=== PATIENT | male | born 1995 | race Caucasian/White ===

== ENCOUNTER 2018-02-26 09:39 | Emergency (ER) | payer MEDICAID, SELFPAY ==
[2018-02-26 09:39] VITALS: BP 132/80; PULSE 85; RESP 18; TEMP 36.6; O2SAT 98; BMI 32.1
[2018-02-26] MEDS: Ondansetron 4 MG/2 ML Vial IV (10:05)
[2018-02-26] MEDS: 0.9% Normal Saline 1,000 ML 150 ML IV (10:05)
[2018-02-26] MEDS: Morphine 4 MG/ML Syringe IV (10:05)
--- NOTE | 2018-02-26 10:15 | RAD_ITS ---
STUDY: X-RAY CHEST REASON FOR EXAM: Male, 22 years old. Right upper quadrant pain TECHNIQUE: PA and lateral views of the chest. COMPARISON: None. FINDINGS: The lungs are clear and expanded. There is no demonstrated pleural abnormality. Normal size heart. Normal mediastinum and jesika. Normal visualized pulmonary arteries. Normal visualized aortic arch and descending thoracic aorta. Normal visualized thoracic spine. Normal visualized ribs, clavicles, and shoulders. There is no demonstrated abnormality of the visualized soft tissue structures of the upper abdomen. RAD/Chest PA and Lateral IMPRESSION: Normal x-ray examination of the chest. Electronically Signed: Heriberto Frankel DO at 10:39 EDT Tel , Service support ,
[2018-02-26 10:17] LABS: Absolute Lymphocyte Count 2.66 X10^3/ul (0.83-4.51); Absolute Neutrophil Count 4.5 X10^3/uL (2.0-7.7); Basophil# 0.02 X10^3/uL; Basophil% 0.2 % (0-1); Eosinophils% 5.9 % (0-5); Hematocrit 45.8 % (40-54); Hemoglobin 16.3 g/dl (13.0-16.5); Lymphocyte # 2.66 X10^3/ul (4.0); Lymphocyte % 31.2 % (19-41); Mean Corp Hgb Conc 35.6 g/gl (32-36); Mean Corpuscular Volume 87.2 fL (80-94); Mean Platelet Vol. 9.6 fl (6.2-12.0); Monocyte# 0.86 X10^3/uL; Monocyte% 10.1 % (0-10); Neutrophil # 4.47 X10^3/uL (2.7-7.7); Neutrophil % 52.4 % (47-70); POSITIVE COUNT NO; POSITIVE DIFFERENTIAL NO; POSITIVE MORPHOLOGY NO; Platelet Count 253 K/mm3 (150-450); RBC Distribution Width CV 12.9 % (11.6-14.6); RBC Distribution Width SD 40.9 fl (35.1-43.9); Red Blood Count 5.25 M/mm3 (4.6-6.2); White Blood Count 8.5 K/mm3 (4.4-11.0)
[2018-02-26 10:26] LABS: D-Dimer Quantitative (DVT/PE) < 0.27 FEU/ug/m (0.27-0.49)
[2018-02-26 10:31] LABS: ALB/GLOB Ratio 1.1 RATIO (0.9-2.4); AST(SGOT) 34 U/L (15-37); Alanine Aminotransfer ALT/SGPT 78 U/L (16-61); Albumin, Serum 4.2 g/dL (3.2-5.0); Alkaline Phosphatase 97 U/L (45-117); Anion Gap 7 (5-15); BUN 10 mg/dL (7-18); BUN/Creat Ratio 11.1 RATIO (10-20); Calcium,Total 8.8 mg/dL (8.5-10.1); Chloride 106 mmol/L (98-107); EST Glomerular Filtration Rate 110 mL/min (>60); Est Glom Filt Rate - Afr Amer 133 mL/min (>60); Estimated Creatinine Clearance 126.56 ml/min; Globulin 3.8 g/dL (2.2-4.2); Glucose 107 mg/dL (74-106); Potassium 4.2 mmol/L (3.5-5.1); Sodium Level 138 mmol/L (136-145)
--- NOTE | 2018-02-26 10:43 | ED.VISSUMM ---
- ER Visit Summary Date of Service: 02/26/18 Chief Complaint: [Right chest pain] History of Present Illness: The patient is a 22 M [presents the emergency department complaint of right-sided chest pain that started around 4 AM this morning. Patient woke up to go to work and noted the discomfort. Vision states pain is worse with breathing and describes it as sharp and stabbing. Patient denies any injury such as lifting or straining. Patient denies recent illness other than about 2 weeks ago he had what he thought was a stomach flu. Patient denies recent travel or surgery. He denies any abdominal pain and has had no nausea or vomiting. Patient denies diarrhea. He denies blood in his urine. He denies urinary symptoms.] Physical Examination: [HEENT-PERRLA, EOMI. Cranial nerves II through XII grossly intact. TMs clear. Mucous membranes moist. No adenopathy. Cardiovascular-regular rate and rhythm without murmur or ectopy Lungs-clear to auscultation, chest wall stable without crepitus or subcu emphysema. Patient does have tenderness palpation of the anterior chest wall that seems to reproduce his pain. Abdomen-normoactive bowel sounds, soft. Patient does have some tenderness over the right upper quadrant but states that he feels like the pain just radiates towards his chest where it seems to emanate. Extremities-intact ?4, normal range of motion, normal pulses, atraumatic] Test Results: [Chest x-ray obtained was normal. CBC with differential was normal. Chemistries were normal. LFTs were normal. D-dimer was less than 0.27.] Emergency Department Course and Treatment: [She was medicated with morphine, Zofran, and Toradol. Patient did have good pain relief with that.] Treatment Plan: [Patient will be given a prescription for Naprosyn and [place]. Patient will be given referral to primary care physician personal fitness manager for no doc for follow-up in 3-5 days.] Disposition: [Discharged home in stable condition] Impression: [Right-sided chest wall pain] This note was generated with [employer] dictation software. It may contain incorrect words, spelling, and punctuation that were not noted in review of the chart prior to signing ED Disposition - Plan for ED Patient: Chief Complaint: Chest Other Referrals: Care Physician,No Primary [Primary Care Provider] -
--- NOTE | 2018-02-26 10:46 | ED.DCSUM_ITS ---
- ER Visit Summary Date of Service: 02/26/18 Chief Complaint: [Right chest pain] History of Present Illness: The patient is a 22 M [presents the emergency department complaint of right-sided chest pain that started around 4 AM this morning. Patient woke up to go to work and noted the discomfort. Vision states pain is worse with breathing and describes it as sharp and stabbing. Patient denies any injury such as lifting or straining. Patient denies recent illness other than about 2 weeks ago he had what he thought was a stomach flu. Patient denies recent travel or surgery. He denies any abdominal pain and has had no nausea or vomiting. Patient denies diarrhea. He denies blood in his urine. He denies urinary symptoms.] Physical Examination: [HEENT-PERRLA, EOMI. Cranial nerves II through XII grossly intact. TMs clear. Mucous membranes moist. No adenopathy. Cardiovascular-regular rate and rhythm without murmur or ectopy Lungs-clear to auscultation, chest wall stable without crepitus or subcu emphysema. Patient does have tenderness palpation of the anterior chest wall that seems to reproduce his pain. Abdomen-normoactive bowel sounds, soft. Patient does have some tenderness over the right upper quadrant but states that he feels like the pain just radiates towards his chest where it seems to emanate. Extremities-intact ?4, normal range of motion, normal pulses, atraumatic] Test Results: [Chest x-ray obtained was normal. CBC with differential was normal. Chemistries were normal. LFTs were normal. D-dimer was less than 0.27.] Emergency Department Course and Treatment: [She was medicated with morphine, Zofran, and Toradol. Patient did have good pain relief with that.] Treatment Plan: [Patient will be given a prescription for Naprosyn and [place]. Patient will be given referral to primary care physician medication tech for no doc for follow-up in 3-5 days.] Disposition: [Discharged home in stable condition] Impression: [Right-sided chest wall pain] This note was generated with [employer] dictation software. It may contain incorrect words, spelling, and punctuation that were not noted in review of the chart prior to signing ED Disposition - Plan for ED Patient: Chief Complaint: Chest Other Referrals: Care Physician,No Primary [Primary Care Provider] -
--- NOTE | 2018-02-26 10:46 | ED.DEP ---
ED Disposition - Plan for ED Patient: Chief Complaint: Chest Other Instructions: ED Strain Chest Wall, ED Chest Pain Pleurisy Prescriptions: Hydrocodone/Acetaminophen [[place] 5-325 Tablet] 1 - 2 ea PO 4X/DAY PRN PRN 5 Days #20 tab PRN Reason: Pain Naproxen [Naprosyn] 500 mg PO BID PRN #20 tab Referrals: Care Physician,No Primary [Primary Care Provider] - Dino Barney MD [STAFF PHYSICIAN] - 3-5 Days
[2018-02-26] MEDS: Ketorolac 30 MG/ML Syringe IV (10:56)
[2018-02-26 10:58] VITALS: BP 118/75; PULSE 62; RESP 15; O2SAT 98
== END 2018-02-26 11:03 | disposition home or self-care (01) ==
PROVIDERS: Emergency Provider Emergency Medicine
DX: R07.89 Other chest pain (principal); Z72.0 Tobacco use
CPT/HCPCS: 71046; 80053; 85025; 85379; 96361; 96374; 96375; 99283; J7030; J2405

== ENCOUNTER 2018-05-17 13:29 | Emergency (ER) | payer MEDICAID, SELFPAY ==
[2018-05-17 13:31] VITALS: BP 149/98; PULSE 94; RESP 16; TEMP 36.3; O2SAT 98; BMI 32.3
--- NOTE | 2018-05-17 13:43 | RAD_ITS ---
STUDY: X-RAY CHEST REASON FOR EXAM: Male, 22 years old. Right-sided chest pain. TECHNIQUE: PA and lateral views of the chest. COMPARISON: None. FINDINGS: Mild increased interstitial markings at the lung bases most likely secondary to poor inspiratory effort. No definite consolidation is seen. Scattered calcified granulomas. There is no demonstrated pleural abnormality. Normal size heart. Normal mediastinum and jesika. Normal visualized pulmonary arteries. Normal visualized aortic arch and descending thoracic aorta. Normal visualized thoracic spine. Normal visualized ribs, clavicles, and shoulders. There is no demonstrated abnormality of the visualized soft tissue structures of the upper abdomen. RAD/Chest PA and Lateral IMPRESSION: Poor inspiratory effort with mild increased markings at the lung bases suggestive of bibasilar atelectasis. Electronically Signed: Mariano Pryor MD at 15:15 EST Tel [phone], Service support ,
--- NOTE | 2018-05-17 13:43 | EKG12_ITS ---
Test Reason : CP Blood Pressure : / mmHG Vent. Rate : 083 BPM Atrial Rate : 083 BPM P-R Int : 150 ms QRS Dur : 094 ms QT Int : 364 ms P-R-T Axes : 053 054 053 degrees QTc Int : 427 ms Normal sinus rhythm with sinus arrhythmia Normal ECG Confirmed by EDWARDO WOOD, COOKIE ([id number]), telegraph editor NILES MAYERS ([id number]) on 05/20/2018 1:32:51 PM Referred By: INDIGO Confirmed By:COOKIE BROOKE MD
--- NOTE | 2018-05-17 13:48 | ED.DCSUM_ITS ---
- ER Visit Summary Date of Service: 05/17/18 Chief Complaint: [] Right-sided chest pain after cough History of Present Illness: The patient is a 22 M [] denies a past history other than to report he has had this type of chest pain in the past, almost the exact same spot, today woke feeling fine and he was at a store he did not exert himself or do any harm to himself when he began coughing and then began having a severe pain sharp stabbing to the right side of the chest, the cough is dry nonproductive he has no URI symptoms no fever he has no cardiopulmonary history specifically history of NM PE or DVT he is on no meds no trauma no mobility his PE risk factors would be none, in the past please had this is been related to a pulled muscle he has no history of cardiopulmonary disease either such as pneumothorax or pneumonia Physical Examination: [] Pressure was 149/98, pulse ox is 98%, he is afebrile he is holding the right upper chest General, no distress resting comfortably HEENT is generally unremarkable The neck is supple no adenopathy Cardiovascular, regular rate and rhythm Lungs, clear bilateral he has some very mild discomfort to the right upper chest mid axillary line there is no crepitus or subcu air lesions here but this is the focus of his pain, his pain is worse if he sits forward or moves his right arm Abdomen, soft nontender Extremities, no clubbing cyanosis or edema Neurologic, awake alert answering questions appropriately moving all 4 extremities Test Results: [] Emergency Department Course and Treatment: [] All of the above he will have pain management EKG chest x-ray EKG and chest x-ray are generally unremarkable see those reports, reevaluation is resting complete vital signs remained stable we went through the long differential with him he has had this pain in the past almost the exact same spot we again reviewed his risk factors he has no risk factors for PE trauma etc. at this time he did not follow-up when he had this before of explained he must follow-up he was started on Naprosyn ice to the area he will rest and return for change in symptoms Treatment Plan: [] Disposition: [] Home stable Impression: [] Right-sided chest pain This note was generated with [employer] software. It may contain incorrect words, spelling, and punctuation that were not noted in review of the chart prior to signing ED Disposition - Plan for ED Patient: Chief Complaint: Chest Other Referrals: Care Physician,No Primary [Primary Care Provider] -
--- NOTE | 2018-05-17 14:00 | EKG12_ITS ---
Test Reason : CP Blood Pressure : / mmHG Vent. Rate : 113 BPM Atrial Rate : 113 BPM P-R Int : 156 ms QRS Dur : 078 ms QT Int : 340 ms P-R-T Axes : 069 091 044 degrees QTc Int : 466 ms Sinus tachycardia Right atrial enlargement Rightward axis Borderline ECG Confirmed by EDWARDO WOOD, COOKIE ([id number]), content editor NILES MAYERS ([id number]) on 05/20/2018 1:57:38 PM Referred By: Confirmed By:COOKIE BROKOE MD
[2018-05-17] MEDS: Naproxen 500 MG Tablet PO (14:55)
[2018-05-17] MEDS: HYDROcodone Bitartrate/Apap 5/325 Tablet PO (14:55)
--- NOTE | 2018-05-17 15:34 | ED.DEP ---
ED Disposition - Plan for ED Patient: Chief Complaint: Chest Other Instructions: ED Chest Pain Atypical Unkn Cause, ED Strain Chest Wall Prescriptions: Naproxen [Naprosyn] 500 mg PO BID PRN #20 tab Referrals: Care Physician,No Primary [Primary Care Provider] - Dino Barney MD [STAFF PHYSICIAN] -
--- OUTSIDE RECORDS SUMMARY | 2018-08-19 01:36 | XMS RPT_ITS ---
:1995 Author Organization [facility] Care Team Providers Name Role Phone Primay Care Physicia, No Primary Care Unavailable Manolo Dillard Attending Unavailable Primay Care Physicia, No Primary Care Unavailable Ungur, Remus Attending Unavailable PROBLEMS PROBLEMS DATE TYPE CONDITION / CODE ATTENDING STATUS SOURCE 02/26/2018 Unknown R07.89 - Other Ungur, Remus Active [place] chest pain / Community R07.89(ICD-10) Hospital Repository PROCEDURES PROCEDURES No Procedure Records FoundRESULTS RESULTS 12 LEAD ELECTROCARDIOGRAM Observed: 05/20/2018 Status: F Source: [place] 1:58 PM [facility] REPOSITORY [facility] Cardiovascular Services [address] [place] [address] 12 Lead EKG 05/17/18 1400 MR#: [id number] Acct: [id number] Name: SAURABH DAILEY Rep #: [id number] : 1995 22 From: Sylvester Mccormick MD Attending Dr: Status: DEP ER Ordering Dr: Domenic Salazar MD Date: 05/17/18 Location: ED Sex: M C Admitted: Test Reason : CP Blood Pressure : / mmHG Vent. Rate : 113 BPM Atrial Rate : 113 BPM P-R Int : 156 ms QRS Dur : 078 ms QT Int : 340 ms P-R-T Axes : 069 091 044 degrees QTc Int : 466 ms Sinus tachycardia Right atrial enlargement Rightward axis Borderline ECG Confirmed by SYLVESTER MCCORMICK MD ([id number]), editor magazine NILES BARNEY ([id number]) on 05/20/2018 1:57:38 PM Referred By: INDIGO Confirmed By:SYLVESTER MCCORMICK MD 05/20/18 1357 Date Sylvester Mccormick MD CC: MD Maryanne Dillard; No Primary Care Physician; Domenic Salazar MD Signed 12 LEAD ELECTROCARDIOGRAM Observed: 05/20/2018 Status: F Source: [place] 1:33 PM [facility] REPOSITORY [facility] Cardiovascular Services [address] [place] [address] 12 Lead EKG 05/17/18 1354 MR#: [id number] Acct: [id number] Name: SAURABH DAILEY Rep #: [id number] : 1995 22 From: Sylvester Mccormick MD Attending Dr: Status: DEP ER Ordering Dr: Manolo Dillard MD Date: 05/17/18 Location: ED Sex: M C Admitted: Test Reason : CP Blood Pressure : / mmHG Vent. Rate : 083 BPM Atrial Rate : 083 BPM P-R Int : 150 ms QRS Dur : 094 ms QT Int : 364 ms P-R-T Axes : 053 054 053 degrees QTc Int : 427 ms Normal sinus rhythm with sinus arrhythmia Normal ECG Confirmed by SYLVESTER MCCORMICK MD ([id number]), NILES Brar ([id number]) on 05/20/2018 1:32:51 PM Referred By: INDIGO Confirmed By:SYLVESTER MCCORMICK MD 05/20/18 1332 Date Sylvester Mccormick MD CC: MD Maryanne Dillard; No Primary Care Physician Signed EMERGENCY DEPARTMENT Observed: 05/18/2018 Status: F Source: [place] SUMMARY 11:37 PM [facility] REPOS[facility] Medical Records Department [address] [place] [address] Emergency Department Summary 05/17/18 1345 MR#: [id number] Acct: [id number] Name: SAURABH DAILEY Rep #: [id number] : 1995 22 From: Manolo Dillard MD PCP: Care Physician, No Primary Status: DEP ER - ER Visit Summary Date of Service: 05/17/18 Chief Complaint: [] Right-sided chest pain after cough History of Present Illness: The patient is a 22 M [] denies a past history other than to report he has had this type of chest pain in the past, almost the exact same spot, today woke feeling fine and he was at a store he did not exert himself or do any harm to himself when he began coughing and then began having a severe pain sharp stabbing to the right side of the chest, the cough is dry nonproductive he has no URI symptoms no fever he has no cardiopulmonary history specifically history of GA PE or DVT he is on no meds no trauma no mobility his PE risk factors would be none, in the past please had this is been related to a pulled muscle he has no history of cardiopulmonary disease either such as pneumothorax or pneumonia Physical Examination: [] Pressure was 149/98, pulse ox is 98%, he is afebrile he is holding the right upper chest General, no distress resting comfortably HEENT is generally unremarkable The neck is supple no adenopathy Cardiovascular, regular rate and rhythm Lungs, clear bilateral he has some very mild discomfort to the right upper chest mid axillary line there is no crepitus or subcu air lesions here but this is the focus of his pain, his pain is worse if he sits forward or moves his right arm Abdomen, soft nontender Extremities, no clubbing cyanosis or edema Neurologic, awake alert answering questions appropriately moving all 4 extremities Test Results: [] Emergency Department Course and Treatment: [] All of the above he will have pain management EKG chest x-ray EKG and chest x-ray are generally unremarkable see those reports, reevaluation is resting complete vital signs remained stable we went through the long differential with him he has had this pain in the past almost the exact same spot we again reviewed his risk factors he has no risk factors for PE trauma etc. at this time he did not follow- up when he had this before of explained he must follow-up he was started on Naprosyn ice to the area he will rest and return for change in symptoms Treatment Plan: [] Disposition: [] Home stable Impression: [] Right-sided chest pain This note was generated with Everlaw dictation software. It may contain incorrect words, spelling, and punctuation that were not noted in review of the chart prior to signing ED Disposition - Plan for ED Patient: Chief Complaint: Chest Other Referrals: Care Physician,No Primary [Primary Care Provider] - What to do if you have Problems For any increased pain, shortness of breath, bleeding, nausea or vomiting, chest pain, or any unexpected problems, contact your Primary Care Provider. Call [facility] ([phone]) or report to the closest Emergency Room. Call 911 if necessary. 05/18/18 2337 <Electronically signed by Manolo Dillard MD> Date Manolo Dillard MD Cosigner Signature (If Indicated): Date CC: No Primary Care Physician DISCHARGE INSTRUCTION Observed: 05/17/2018 Status: F Source: [place] 3:37 PM [facility] Medical Records Department [address] [place] [address] Discharge Instruction 05/17/18 1534 MR#: [id number] Acct: [id number] Name: SAURABH DAILEY Rep #: [id number] : 1995 22 From: Manolo Dillard MD PCP: Care Physician, No Primary Status: REG ER ED Disposition - Plan for ED Patient: Chief Complaint: Chest Other Instructions: ED Chest Pain Atypical Unkn Cause, ED Strain Chest Wall Prescriptions: Naproxen [Naprosyn] 500 mg PO BID PRN #20 tab Referrals: Care Physician,No Primary [Primary Care Provider] - Dino Barney MD [STAFF PHYSICIAN] - What to do if you have Problems For any increased pain, shortness of breath, bleeding, nausea or vomiting, chest pain, or any unexpected problems, contact your Primary Care Provider. Call [facility] ([phone]) or report to the closest Emergency Room. Call 911 if necessary. 05/17/18 1537 <Electronically signed by Manolo Dillard MD> Date Manolo Dillard MD Cosigner Signature (If Indicated): Date CC: No Primary Care Physician CHEST PA AND LATERAL Observed: 05/17/2018 Status: F Source: [place] 1:45 PM [facility] Imaging Services [address] [place] [address] Chest PA and Lateral MR#: [id number] Acct: [id number] Name: SAURABH DAILEY Rep #: [id number] : 1995 M 22 From: Mariano Pryor MD PCP: Care Physician, No Primary Status: REG ER Study: Chest PA and Lateral Date of Exam: 05/17/18 Exam# [id number] Ordering Dr: Manolo Dillard MD STUDY: X-RAY CHEST REASON FOR EXAM: Male, 22 years old. Right-sided chest pain. TECHNIQUE: PA and lateral views of the chest. COMPARISON: None. FINDINGS: Mild increased interstitial markings at the lung bases most likely secondary to poor inspiratory effort. No definite consolidation is seen. Scattered calcified granulomas. There is no demonstrated pleural abnormality. Normal size heart. Normal mediastinum and jesika. Normal visualized pulmonary arteries. Normal visualized aortic arch and descending thoracic aorta. Normal visualized thoracic spine. Normal visualized ribs, clavicles, and shoulders. There is no demonstrated abnormality of the visualized soft tissue structures of the upper abdomen. RAD/Chest PA and Lateral IMPRESSION: Poor inspiratory effort with mild increased markings at the lung bases suggestive of bibasilar atelectasis. Electronically Signed: Mariano Pryor MD at 15:15 EST Tel [phone], Service support , CC: MD Maryanne Dillard; No Primary Care Physician Journeyman Press Operator: Signed DISCHARGE INSTRUCTION Observed: 02/26/2018 Status: F Source: [place] 10:47 AM [facility] Medical Records Department [address] [place] [address] Discharge Instruction 02/26/18 1046 MR#: [id number] Acct: [id number] Name: SAURABH DAILEY Rep #: [id number] : 1995 22 From: Melva Costa DO PCP: Care Physician, No Primary Status: REG ER ED Disposition - Plan for ED Patient: Chief Complaint: Chest Other Instructions: ED Strain Chest Wall, ED Chest Pain Pleurisy Prescriptions: Hydrocodone/Acetaminophen [[place] 5-325 Tablet] 1 - 2 ea PO 4X/DAY PRN PRN 5 Days #20 tab PRN Reason: Pain Naproxen [Naprosyn] 500 mg PO BID PRN #20 tab Referrals: Care Physician,No Primary [Primary Care Provider] - Dino Barney MD [STAFF PHYSICIAN] - 3-5 Days What to do if you have Problems For any increased pain, shortness of breath, bleeding, nausea or vomiting, chest pain, or any unexpected problems, contact your Primary Care Provider. Call [facility] ([phone]) or report to the closest Emergency Room. Call 911 if necessary. 02/26/18 1047 <Electronically signed by Remus Ungur DO> Date Melva Costa DO Cosigner Signature (If Indicated): Date CC: No Primary Care Physician EMERGENCY DEPARTMENT Observed: 02/26/2018 Status: F Source: [place] SUMMARY 10:46 AM [facility] Medical Records Department [address] [place] [address] Emergency Department Summary 02/26/18 1043 MR#: [id number] Acct: [id number] Name: SAURABH DAILEY Rep #: [id number] : 1995 22 From: Melva Costa DO PCP: Care Physician, No Primary Status: REG ER - ER Visit Summary Date of Service: 02/26/18 Chief Complaint: [Right chest pain] History of Present Illness: The patient is a 22 M [presents the emergency department complaint of right-sided chest pain that started around 4 AM this morning. Patient woke up to go to work and noted the discomfort. Vision states pain is worse with breathing and describes it as sharp and stabbing. Patient denies any injury such as lifting or straining. Patient denies recent illness other than about 2 weeks ago he had what he thought was a stomach flu. Patient denies recent travel or surgery. He denies any abdominal pain and has had no nausea or vomiting. Patient denies diarrhea. He denies blood in his urine. He denies urinary symptoms.] Physical Examination: [HEENT-PERRLA, EOMI. Cranial nerves II through XII grossly intact. TMs clear. Mucous membranes moist. No adenopathy. Cardiovascular-regular rate and rhythm without murmur or ectopy Lungs-clear to auscultation, chest wall stable without crepitus or subcu emphysema. Patient does have tenderness palpation of the anterior chest wall that seems to reproduce his pain. Abdomen-normoactive bowel sounds, soft. Patient does have some tenderness over the right upper quadrant but states that he feels like the pain just radiates towards his chest where it seems to emanate. Extremities-intact 4, normal range of motion, normal pulses, atraumatic] Test Results: [Chest x-ray obtained was normal. CBC with differential was normal. Chemistries were normal. LFTs were normal. D-dimer was less than 0.27.] Emergency Department Course and Treatment: [She was medicated with morphine, Zofran, and Toradol. Patient did have good pain relief with that.] Treatment Plan: [Patient will be given a prescription for Naprosyn and [place]. Patient will be given referral to primary care physician station supervisor for no doc for follow-up in 3-5 days.] Disposition: [Discharged home in stable condition] Impression: [Right-sided chest wall pain] This note was generated with Everlaw dictation software. It may contain incorrect words, spelling, and punctuation that were not noted in review of the chart prior to signing ED Disposition - Plan for ED Patient: Chief Complaint: Chest Other Referrals: Care Physician,No Primary [Primary Care Provider] - What to do if you have Problems For any increased pain, shortness of breath, bleeding, nausea or vomiting, chest pain, or any unexpected problems, contact your Primary Care Provider. Call [facility] ([phone]) or report to the closest Emergency Room. Call 911 if necessary. 02/26/18 1046 <Electronically signed by Melva Costa DO> Date Melva Costa DO Cosigner Signature (If Indicated): Date CC: No Primary Care Physician CBC W/DIFF, AUTOMATED Collected: 02/26/2018 Status: F Source: [place] 10:02 AM [facility] REPOSITORY TYPE CODE TESTS RESULT OUT OF RANGE REFERENCE UNITS LAB L100.1000 4.4-11.0 K/mm3 Normal WBC 8.5 LAB L100.1200 4.6-6.2 M/mm3 Normal RBC 5.25 LAB L100.1300 13.0-16.5 g/dl Normal HGB 16.3 LAB L100.1400 40-54 % Normal HCT 45.8 LAB L100.1500 80-94 fL Normal MCV 87.2 LAB L100.1600 27.0-32.0 pg Normal MCH 31.0 LAB L100.1700 32-36 g/gl Normal MCHC 35.6 LAB L100.1810 11.6-14.6 % Normal RDW CV 12.9 LAB L100.1820 35.1-43.9 fl Normal RDW SD 40.9 LAB L100.1900 150-450 K/mm3 Normal PLT 253 LAB L100.2000 6.2-12.0 fl Normal MPV 9.6 LAB L100.2100 47-70 % Normal NEUT% 52.4 LAB L100.2200 19-41 % Normal LY% 31.2 LAB L100.2300 0-10 % High MONO% 10.1 LAB L100.2400 0-5 % High EO% 5.9 LAB L100.2500 0-1 % Normal BASO% 0.2 LAB L100.2550 0.0-0.9 % Normal IM GRAN % 0.200 Result Comment: IG% - Immature Granulocytes (promyelocytes, myelocytes and metamyelocytes) > 1% indicates that a LEFT SHIFT is Present. LAB L100.2620 2.0-7.7 X10 3/uL Normal Absolute Neut 4.5 LAB L100.2720 0.83-4.51 X10 3/ul Normal Absolute Lymph 2.66 Performed By: #### L100.0100 #### [facility] [address]. [place], [place], [address] D-DIMER QUANTITATIVE Collected: 02/26/2018 Status: F Source: [place] (DVT/PE) 10:02 AM [facility] REPOS[facility]ORY TYPE CODE TESTS RESULT OUT OF RANGE REFERENCE UNITS LAB L300.8000 0.27-0.49 FEU/ug/m Low D-DIMER < 0.27 QUANT Result Comment: NORMAL D-Dimer level (<0.50) indicates no DVT or PE. Performed By: #### L300.8000 #### [facility] [address] [place], [address] COMPREHENSIVE METABOLIC Collected: 02/26/2018 Status: F Source: [place] 10:02 AM [facility] REPOSITORY TYPE CODE TESTS RESULT OUT OF RANGE REFERENCE UNITS LAB L501.0100 74-106 mg/dL High GLU 107 Result Comment: Fasting Glucose result from 100 to 125 mg/dL suggests IMPAIRED HOMEOSTASIS per A.D.A. criteria. Please note revised GLUCOSE reference range effective 2017. LAB L501.1000 7-18 mg/dL Normal BUN 10 LAB L501.1100 0.70-1.30 mg/dL Normal CREAT,SERUM 0.90 Result Comment: The validity of the calculated GFR AND GFRAA in patients over 70 years has not been determined. Clinical correlation is essential. LAB L501.1110 >60 mL/min Normal EST GFR 110 Result Comment: Non- GFR Calc LAB L501.1115 >60 mL/min Normal EST GFR - AA 133 Result Comment: GFR Calc LAB L501.1255 ml/min Normal Estimated CRCL 126.56 LAB L501.1300 10-20 RATIO BUN/CRE Normal 11.1 LAB L501.1500 6.4-8. g/dL 2 T PROT Normal 8.0 LAB L501.1800 3.2-5. g/dL 0 ALB Normal 4.2 LAB L501.1950 2.2-4. g/dL 2 GLOB Normal 3.8 LAB L501.2000 0.9-2. RATIO 4 A/G Normal 1.1 LAB L501.2200 8.5-10 mg/dL .1 CA Normal 8.8 LAB L501.4100 15-37 U/L AST Normal 34 LAB L501.4305 45-117 U/L ALK P Normal 97 LAB L501.4405 16-61 U/L High ALT 78 LAB L501.4600 0.20-1 mg/dL .00 T BILI Normal 0.40 LAB L501.5300 136-14 mmol/L 5 NA Normal 138 LAB L501.5600 3.5-5. mmol/L 1 K Normal 4.2 LAB L501.5900 98-107 mmol/L CL Normal 106 LAB L501.6100 21.0-3 mmol/L 2.0 CO2 Normal 25.0 LAB L501.6200 5-15 GAP Normal 7 Performed By: #### L500.4050 #### [facility] [address] [place], [address] CHEST PA AND LATERAL Observed: 02/26/2018 Status: F Source: [place] 9:49 AM [facility] REPOSITORY [facility] Imaging Services [address] [address] Chest PA and Lateral MR#: [id number] Acct: [id number] Name: SAURABH DAILEY Rep #: [id number] : 1995 M 22 From: Heriberto Frankel DO PCP: Care Physician, No Primary Status: REG ER Study: Chest PA and Lateral Date of Exam: 02/26/18 Exam# [id number] Ordering Dr: Melva Costa DO STUDY: X-RAY CHEST REASON FOR EXAM: Male, 22 years old. Right upper quadrant pain TECHNIQUE: PA and lateral views of the chest. COMPARISON: None. FINDINGS: The lungs are clear and expanded. There is no demonstrated pleural abnormality. Normal size heart. Normal mediastinum and jesika. Normal visualized pulmonary arteries. Normal visualized aortic arch and descending thoracic aorta. Normal visualized thoracic spine. Normal visualized ribs, clavicles, and shoulders. There is no demonstrated abnormality of the visualized soft tissue structures of the upper abdomen. RAD/Chest PA and Lateral IMPRESSION: Normal x-ray examination of the chest. Electronically Signed: Heriberto Frankel DO at 10:39 EDT Tel , Service support , CC: No Primary Care Physician; Melva Costa DO Journeyman Press Operator: Signed ALLERGIES ALLERGIES DATE TYPE / CODE NAME / CODE REACTION SEVERITY SOURCE 05/17/2018 Drug No Known Unknown [facility] Allergy/4160 Allergies/F00 Hospital 64281(SNOMED [id number](RXNOR Repository CT) M) ENCOUNTERS ENCOUNTERS ADMIT/DISCHARGE ACCOUNT ADMITTING ENCOUNTER LOCATION SOURCE NUMBER CLASS 05/17/2018/ [id number] Emergency [address] ing:ED Repository 02/26/2018/ [id number] Emergency [address] ing:ED Repository PAYERS PAYERS ENCOUNTER GUARANTOR PAYER SUBSCRIBER SOURCE 05/17/2018 SAURABH A Primary SAURABH A [place] [id number] Insurance:QUEENIE KRISHNAMURTHYLESLIE: [facility] [id number]: Repository [id number]: 234 [id number] [phone] () Date:[id number] [address] [place] [address]RI: 05/17/2018 Secondary NOT GIVENUNK [place] Insurance:SELF PAY [facility] Number: Effective Repository Date:2018-05-17 02/26/2018 SAURABH A Primary SAURABH A [place] [id number] Insurance:QUEENIE SHARP: [facility] [id number]AN[place] Number: Repository [id number]: [id number] [phone] () Date:1848-20-50US [address] [place] [address]53[address]ZA: 02/26/2018 Secondary NOT GIVENUNK [place] Insurance:SELF PAY [facility] Number: Effective Repository Date:2018-02-26
== END 2018-05-17 16:04 | disposition home or self-care (01) ==
LOC: ED 14:00
PROVIDERS: Emergency Provider Emergency Medicine
DX: R07.89 Other chest pain (principal); R05 Cough
CPT/HCPCS: 71046; 93005; 99283

== ENCOUNTER 2018-06-26 14:11 | Emergency (ER) | payer SELFPAY ==
[2018-06-26 14:12] VITALS: BP 137/91; PULSE 110; RESP 18; TEMP 36.6; O2SAT 98; BMI 31.5
--- NOTE | 2018-06-26 14:36 | ED.DCSUM_ITS ---
- ER Visit Summary Date of Service: 06/26/18 Chief Complaint: Rectal bleed History of Present Illness: The patient is a 22 M who is otherwise healthy presents with rectal bleeding. Patient states that over the past 2 days, he is noted some bright red blood when he moves his bowels especially when he wipes. He denies any rectal pain. He denies any fevers or chills. He has no history of Crohn's disease or ulcerative colitis. He takes no daily medications. He is not on any blood thinners. He states that he is not really had any pain. Denies any weight loss or night sweats. Physical Examination: Vital signs reviewed General: Well-nourished, well-developed Head: Normocephalic, atraumatic Eyes: Pupils equal and reactive, extraocular muscles intact Neck, supple, no lymphadenopathy Heart: Regular rate and rhythm Respiratory: No distress, clear bilaterally Abdomen: Soft, nontender, nondistended, no peritoneal signs Rectal: Patient does have a hemorrhoid at the 3 o'clock position that has recently bled. It is nontender. There is no abscess. Back: Nontender Extremities: Nontender, no edema, no cords Skin: Normal color no rash Neuro: Alert and oriented, no focal or lateralizing deficits Test Results: [] Emergency Department Course and Treatment: Rectal exam did show a hemorrhoid at 3 o'clock position. It is not thrombosed. There is stigmata of recent bleeding. His abdomen was soft and nontender. I did obtain a CBC which was unremarkable. His hemoglobin is stable. I am going to start patient on Anusol given outpatient surgical follow-up. He declined stool softeners. He was counseled on concerning symptoms and reasons to return. He will be discharged home. Treatment Plan: [] Disposition: Discharge Impression: 1. Bleeding hemorrhoid This note was generated with [employer] dictation software. It may contain incorrect words, spelling, and punctuation that were not noted in review of the chart prior to signing ED Disposition - Plan for ED Patient: Chief Complaint: GI Bleed Instructions: ED Hemorrhoids Prescriptions: Hydrocortisone Acetate Cream [Anusol Hc] 1 applic TOPICAL TID PRN PRN #1 tube PRN Reason: Rectal Discomfort Referrals: Zeny Veronica MD [STAFF PHYSICIAN] -
[2018-06-26 14:42] LABS: Absolute Lymphocyte Count 2.82 X10^3/ul (0.83-4.51); Absolute Neutrophil Count 4.5 X10^3/uL (2.0-7.7); Basophil# 0.03 X10^3/uL; Basophil% 0.3 % (0-1); Eosinophil# 0.46 X10^3/uL; Eosinophils% 5.3 % (0-5); Hemoglobin 16.6 g/dl (13.0-16.5); Lymphocyte # 2.82 X10^3/ul (4.0); Lymphocyte % 32.7 % (19-41); Mean Corp Hgb Conc 35.3 g/gl (32-36); Mean Corpuscular Volume 87.9 fL (80-94); Mean Platelet Vol. 9.8 fl (6.2-12.0); Monocyte% 9.3 % (0-10); Neutrophil % 52.2 % (47-70); POSITIVE COUNT NO; POSITIVE DIFFERENTIAL NO; POSITIVE MORPHOLOGY NO; Platelet Count 221 K/mm3 (150-450); RBC Distribution Width SD 42.1 fl (35.1-43.9); Red Blood Count 5.35 M/mm3 (4.6-6.2); White Blood Count 8.6 K/mm3 (4.4-11.0)
[2018-06-26 15:35] VITALS: BP 155/90; PULSE 95; RESP 18; O2SAT 98
== END 2018-06-26 15:35 | disposition home or self-care (01) ==
LOC: ED 15:29
PROVIDERS: Emergency Provider Emergency Medicine
DX: K64.9 Unspecified hemorrhoids (principal)
CPT/HCPCS: 85025; 99282; A4216

== ENCOUNTER 2018-08-25 13:44 | Emergency (ER) | payer SELFPAY ==
[2018-08-25 13:45] VITALS: BP 147/90; PULSE 82; RESP 17; TEMP 36.2; O2SAT 97; BMI 32.5
[2018-08-25 14:09] LABS: Absolute Lymphocyte Count 3.25 X10^3/ul (0.83-4.51); Absolute Neutrophil Count 7.4 X10^3/uL (2.0-7.7); Anion Gap 4 (5-15); BUN 11 mg/dL (7-18); BUN/Creat Ratio 11.7 RATIO (10-20); Basophil# 0.03 X10^3/uL; Basophil% 0.2 % (0-1); Calcium,Total 9.1 mg/dL (8.5-10.1); Chloride 105 mmol/L (98-107); Creatinine, Serum 0.94 mg/dL (0.70-1.30); EST Glomerular Filtration Rate 104 mL/min (>60); Eosinophil# 0.44 X10^3/uL; Eosinophils% 3.5 % (0-5); Est Glom Filt Rate - Afr Amer 125 mL/min (>60); Estimated Creatinine Clearance 120.13 ml/min; Glucose 99 mg/dL (74-106); Hemoglobin 16.3 g/dl (13.0-16.5); Lymphocyte # 3.25 X10^3/ul (4.0); Lymphocyte % 26.1 % (19-41); Mean Corp Hgb Conc 34.7 g/gl (32-36); Mean Corpuscular Volume 89.4 fL (80-94); Mean Platelet Vol. 9.7 fl (6.2-12.0); Monocyte# 1.31 X10^3/uL; Monocyte% 10.5 % (0-10); Neutrophil # 7.42 X10^3/uL (2.7-7.7); Neutrophil % 59.5 % (47-70); POSITIVE COUNT NO; POSITIVE DIFFERENTIAL NO; POSITIVE MORPHOLOGY NO; Platelet Count 237 K/mm3 (150-450); Potassium 3.9 mmol/L (3.5-5.1); RBC Distribution Width CV 13.2 % (11.6-14.6); Red Blood Count 5.26 M/mm3 (4.6-6.2); Sodium Level 138 mmol/L (136-145); White Blood Count 12.5 K/mm3 (4.4-11.0)
--- NOTE | 2018-08-25 15:01 | NURSING ---
DR KIRAN PAGEMesha
--- NOTE | 2018-08-25 15:02 | ED.VIS.GEN ---
History of Present Illness Chief Complaint: GI Bleed Informant: Patient, Significant Other Onset: Month(s) Context: Gradual Onset Quality: Read narrative Location: GI Current Severity: Mild Maximum Severity: Moderate Worsened by: Unknown Relieved by: Nothing Associated Symptoms: Vomiting daily and diarrhea daily times 1 year Narrative: Patient is a 23-year-old male who has history of smoking presents with vomiting and diarrhea for approximately a year. He had increased blood in his stool. He was seen 1 month ago and diagnosed with external hemorrhoids. He reports bright red blood with bowel movement and bright red blood on toilet paper. He denies orthostatic symptoms. He denies cardiac respiratory symptoms. He has no known family history of ulcerative colitis or Crohn's disease. Prior similar symptoms: No Recent Illness/Hospitalization: No Past Medical History - Allergies and Home Meds Allergies/Adverse Reactions: Allergies No Known Allergies Allergy (Verified 08/25/18 13:44) Primary Care Physician: Care Physician,No Primary [Primary Care Provider] - Prior records reviewed: Yes - Prior ER records were reviewed Past Medical History: None Surgical History: no surgical history Lives: Spouse/ Significant Other Smoking Status: Current every day smoker Alcohol: Rare Review of Systems General: Denies: Chills, Fever, Sweats Eyes: Denies: Visual changes - bilaterally, Diplopia ENT: Denies: Rhinorrhea, Sore throat Cardiovascular: Denies: Chest pain, Palpitations Respiratory: Denies: Dyspnea, Cough, Dyspnea on exertion Gastrointestinal: Reports: Abdominal pain, Nausea, Vomiting, Diarrhea, Hematochezia. Denies: Melena Genitourinary: Denies: Dysuria, Hematuria, Frequency Musculoskeletal: Denies: Back pain, Extremity Pain Skin: Denies: Rash, Wounds Neurological: Denies: Headache, Weakness, Numbness Hematologic: Denies: Easy bruising, Easy bleeding Allergy: Denies: Uticaria Physical Exam Vital Signs/Narrative: Vital Signs Temp Pulse Resp BP Pulse Ox 08/25/18 13:45 97.1 F L 82 17 147/90 H 97 Inital Vital Signs reviewed: Yes General: Well nourished, Well developed, No Acute Distress Head: Normocephalic, Atraumatic Eyes: Perrl, EOMI. Negative for: Pale conjunctiva, Scleral icterus ENT: Moist mucous membranes, No rhinorrhea Neck: Supple, Nontender Cardiovascular: Regular rate, Regular rhythm, No murmurs, Normal S1, Normal S2 Respiratory: No distress, CTA bilaterally, Chest nontender Abdomen: Soft, Nontender, Nondistended, Normal bowel sounds. Negative for: Hepatomegaly, Splenomegaly, Mass, Pulsatile mass Rectal: - - Stool is brown. There is evidence of hemorrhoid. There is also sentinel tag noted. Prostate is normal size. Back: Nontender, Normal Inspection. Negative for: CVA tenderness Skin: Normal color, No rash. Negative for: Jaundice Neurological: Alert, Oriented x3, Cranial nerves II-XII grossly intact, Normal Strength, Normal Sensation Psychological: Normal affect, Normal Mood Diagnostic/Tx/Re-eval Laboratory Results 08/25/18 08/25/18 13:50 13:50 WBC 12.5 H RBC 5.26 Hgb 16.3 Hct 47.0 MCV 89.4 MCH 31.0 MCHC 34.7 RDW 13.2 RDW Differential 43.0 Plt Count 237 MPV 9.7 Immature Gran % (Auto) 0.200 Neut % (Auto) 59.5 Lymph % (Auto) 26.1 [place] % (Auto) 10.5 H Eos % (Auto) 3.5 Baso % (Auto) 0.2 Absolute Neuts (auto) 7.4 Absolute Lymphs (auto) 3.25 Total Counted Not Reportable Sodium 138 Potassium 3.9 Chloride 105 Carbon Dioxide 29.0 Anion Gap 4 L BUN 11 Creatinine 0.94 Estim Creat Clear Calc 120.13 Est GFR (MDRD) Af Amer 125 Est GFR (MDRD) Non-Af 104 BUN/Creatinine Ratio 11.7 Glucose 99 Calcium 9.1 - Medical Decision Making Blood work is initiated by nursing staff prior to seeing patient. Blood work was appropriate in light of patient's history. Since exam is remarkable hemorrhoids blood work is negative and has history of vomiting and diarrhea for 1 year he was referred to Dr. Young for EGD and colonoscopy for further outpatient workup Electrodes were obtained to assess sodium potassium CO2 and anion gap. CBC to assess white count and H&H. ED Disposition - Plan for ED Patient: Disposition: Home or Assisted Living Diagnosis: Hematochezia, External hemorrhoids without complication, Diarrhea, Vomiting Instructions: ED Hemorrhoids Referrals: Care Physician,No Primary [Primary Care Provider] - Torrey Hunter MD [STAFF PHYSICIAN] - 3-5 Days Additional Instructions: Call Dr. Hunter to schedule follow-up appointment and colonoscopy and endoscopy of your upper GI system
== END 2018-08-25 15:26 | disposition home or self-care (01) ==
LOC: ED 15:25
PROVIDERS: Emergency Provider Emergency Medicine
DX: K92.1 Melena (principal); K64.4 Residual hemorrhoidal skin tags; R11.2 Nausea with vomiting, unspecified; F17.200 Nicotine dependence, unspecified, uncomplicated
CPT/HCPCS: 80048; 85025; 99283; A4216

== ENCOUNTER 2019-01-03 17:44 | Emergency (ER) | payer MEDICAID, SELFPAY ==
[2019-01-03] VITALS (8 sets, daily range): BP systolic 141–147; BP diastolic 87–99; PULSE 100–103; RESP 16–18; TEMP 36.6; O2SAT 97–99; BMI 30.7
[2019-01-03 19:01] LABS: Absolute Lymphocyte Count 2.63 X10^3/uL (0.83-4.51); Absolute Neutrophil Count 4.1 X10^3/uL (2.0-7.7); Basophil# 0.02 X10^3/uL; Basophil% 0.3 % (0-1); Eosinophil# 0.15 X10^3/uL; Eosinophils% 1.9 % (0-5); Hematocrit 49.8 % (40-54); Hemoglobin 17.7 g/dL (13.0-16.5); Lymphocyte # 2.63 X10^3/ul (4.0); Lymphocyte % 34.1 % (19-41); Mean Corp Hgb Conc 35.5 g/dL (32-36); Mean Corpuscular Hgb 31.4 pg (27.0-32.0); Mean Corpuscular Volume 88.5 fL (80-94); Mean Platelet Vol. 9.5 fl (6.2-12.0); Monocyte# 0.83 X10^3/uL; Monocyte% 10.8 % (0-10); NRBC Flagged by Analyzer 0 % (0-5); Neutrophil # 4.06 X10^3/uL (2.7-7.7); Neutrophil % 52.5 % (47-70); Platelet Count 181 K/mm3 (150-450); RBC Distribution Width CV 13.1 % (11.6-14.6); RBC Distribution Width SD 42.3 fl (35.1-43.9); Red Blood Count 5.63 M/mm3 (4.6-6.2); White Blood Count 7.7 K/mm3 (4.4-11.0)
--- NOTE | 2019-01-03 19:30 | CM.ED ---
SOCIAL WORK DISCUSSED WITH DR. ROMERO. PATIENT INTOXICATED. UNABLE TO ASSESS AT THIS TIME. CRISIS TO ASSESS ONCE MEDICALLY CLEARED. CELLULAR PHONE REPAIRER, BETI HERE AND UPDATED ON THE ABOVE. GIORGI FRANKEL, PARKING METER ATTENDANT, IRRIGATOR OVERHEAD.
[2019-01-03 19:32] LABS: Anion Gap 8 (5-15); BUN 6 mg/dL (7-18); BUN/Creat Ratio 8.1 RATIO (10-20); Calcium,Total 8.9 mg/dL (8.5-10.1); Chloride 107 mmol/L (98-107); Creatinine, Serum 0.74 mg/dL (0.70-1.30); EST Glomerular Filtration Rate 137 mL/min (>60); Est Glom Filt Rate - Afr Amer 166 mL/min (>60); Estimated Creatinine Clearance 162.53 ml/min; Glucose 92 mg/dL (74-106); Potassium 3.7 mmol/L (3.5-5.1); Sodium Level 140 mmol/L (136-145)
[2019-01-03 19:36] LABS: Amphetamine Urine VISTA NEGATIVE (<1000 ng/mL); Barbiturate Urine VISTA NEGATIVE (< 200 ng/mL); Benzodiazepine Urine VISTA NEGATIVE (< 200 ng/mL); Cocaine Urine VISTA NEGATIVE (< 300 ng/mL); Ecstacy Urine VISTA NEGATIVE (< 500 ng/mL); Methadone Urine VISTA NEGATIVE (< 300 ng/mL); PCP Urine VISTA NEGATIVE (< 25 ng/mL); THC Urine VISTA POSITIVE (< 50 ng/mL); Vista UDS pH Range 6
--- NOTE | 2019-01-03 19:36 | ED.VISSUMM ---
- ER Visit Summary Date of Service: 01/03/19 Chief Complaint: [Suicidal thoughts] History of Present Illness: The patient is a 23 M [present to the emergency department with his girlfriend. Patient apparently was found by the girlfriend with a belt around his neck. Patient's been depressed since his friend about a month ago. Patient also recently broke up with his girlfriend. Patient's been telling the girlfriend that his kids would be better off without him. Patient also is concerned that he may lose his job that he started a couple months ago. Patient has been drinking since this morning and girlfriend stated that he is an alcoholic. Patient denies any auditory or visual hallucinations. Patient does not take any psychiatric medications. Patient complains of some mild discomfort to his anterior neck.] Physical Examination: [HEENT-PERRLA, EOMI. Cranial nerves II through XII grossly intact. TMs clear. Mucous membranes moist. No adenopathy. No external evidence of trauma to his neck. There is no crepitus or subcu emphysema of the neck. No tenderness over the trachea. Patient's voice is normal. Cardiovascular-regular rate and rhythm without murmur or ectopy Lungs-clear to auscultation, chest wall stable without crepitus or subcu emphysema Abdomen-normoactive bowel sounds, soft, nontender, no rebound or rigidity, no peritoneal signs. Extremities-intact ?4, normal range of motion, normal pulses, atraumatic] Test Results: [CBC with differential is normal. Chemistries were normal. Alcohol was 162. Toxicology screen was positive for marijuana.] Emergency Department Course and Treatment: [Patient will be seen by crisis to evaluate for possible transfer to psychiatric facility.] Treatment Plan: [Pending evaluation by crisis. Care of patient turned over to evening physician awaiting final disposition] Disposition: [Pending] Impression: [Depression Suicidal ideation] This note was generated with [employer] dictation software. It may contain incorrect words, spelling, and punctuation that were not noted in review of the chart prior to signing ED Disposition - Plan for ED Patient: Referrals: Care Physician,No Primary [Primary Care Provider] -
[2019-01-03] MEDS: Ziprasidone IM 20 MG/ML VIAL IM (23:55)
[2019-01-04] VITALS (8 sets, daily range): BP systolic 111–118; BP diastolic 68–74; PULSE 74–84; RESP 15–18; O2SAT 96–99
--- NOTE | 2019-01-04 01:28 | ED.RN ---
[facility] CALLED TO ACCEPT PT. PT TO BE TRANSFERRED AFTER [address] RIDLEY INFORMED OF TRANSFER.
--- NOTE | 2019-01-04 02:02 | ED.RN ---
REPORT WAS CALLED TO [facility], THIS NURSE SPOKE WITH ELODIA WILLS AT [phone] AND IS GOING TO THE GERIATRIC UNIT FOR BED CONVENIENCE.
== END 2019-01-04 09:04 | disposition home or self-care (01) ==
PROVIDERS: Emergency Provider Emergency Medicine
DX: F32.9 Major depressive disorder, single episode, unspecified (principal); R45.851 Suicidal ideations; F12.90 Cannabis use, unspecified, uncomplicated; Z72.0 Tobacco use
CPT/HCPCS: 80048; 80307; 80320; 85025; 96372; 99285; G0480; J3486

== ENCOUNTER 2019-06-27 07:53 | Emergency (ER) | payer MEDICAID, SELFPAY ==
[2019-01-03 17:46] VITALS: BMI 30.7
[2019-06-27 07:54] VITALS: BP 136/90; PULSE 90; RESP 20; TEMP 36.6; O2SAT 95; BMI 32.4
[2019-06-27 07:58] VITALS: BP 136/90; PULSE 81; RESP 16; TEMP 36.6; O2SAT 96
--- NOTE | 2019-06-27 08:17 | CT_ITS ---
STUDY: CT BRAIN WITHOUT CONTRAST REASON FOR EXAM: Male, 23 years old. HEADACHE RADIATION DOSAGE (If Supplied By Facility): CTDIvol = ( 44.99 ) mGy, DLP = ( 812.98 ) mGycm TECHNIQUE: Transaxial CT imaging of the brain was performed without administration of intravenous contrast material. Individualized dose optimization techniques were used for this CT. COMPARISON: No relevant priors. FINDINGS: Normal soft tissue structures. Normal calvarium. Normal size ventricles and extra-axial spaces for the patient''s age. Normal white matter tracts of the cerebral hemispheres. Normal basal ganglia and thalami. Normal brainstem. Normal cerebellum. There is no intracranial hemorrhage. There are no findings of an acute ischemic infarction. Normal visualized paranasal sinuses. CT/Brain/Head without Contrast IMPRESSION: Normal unenhanced CT scan of the brain. Electronically Signed: Mariano Pryor, at 9:16 EST , Service support ,
--- NOTE | 2019-06-27 08:18 | EKG12_ITS ---
Test Reason : CP Blood Pressure : / mmHG Vent. Rate : 078 BPM Atrial Rate : 078 BPM P-R Int : 158 ms QRS Dur : 104 ms QT Int : 368 ms P-R-T Axes : 054 024 038 degrees QTc Int : 419 ms Normal sinus rhythm with sinus arrhythmia Normal ECG Confirmed by GLORIA SALEEM ([id number]), offline editor LIZBETH ZEPEDA ([id number]) on 06/29/2019 10:19:13 AM Referred By: NATASHA Confirmed By:GLORIA SALEEM
--- NOTE | 2019-06-27 08:19 | CT_ITS ---
STUDY: CTA CHEST REASON FOR EXAM: Male, 23 years old. Syncope, cough AND CHEST PAIN RADIATION DOSAGE (If Supplied By Facility): CTDIvol = ( 11.47 ) mGy, DLP = ( 447.24 ) mGycm TECHNIQUE: The examination was performed with the intravenous administration of 100ML ISOVUE 370. Post-processing of the angiographic images was performed, with multiplanar reformation and 3D reconstruction. Individualized dose optimization techniques were used for this CT. COMPARISON: None. FINDINGS: Normal enhancement of the main pulmonary artery and right and left pulmonary arteries. Normal enhancement of the bilateral peripheral pulmonary arteries. There is no demonstrated pulmonary embolism. Normal thoracic aorta and visualized great vessels. There is no demonstrated aortic dissection. Normal heart and pericardium. Normal mediastinum. Normal hilar regions. Normal visualized trachea and bronchi. The lungs are well expanded. Normal pulmonary parenchyma. Normal pleura. Normal chest wall structures. Normal osseous structures. Normal visualized upper abdomen. CT/CTA Chest W/WO Contrast IMPRESSION: Normal CTA chest examination, without a demonstrated pulmonary embolism or arterial dissection. Electronically Signed: Mariano Pryor, at 9:27 EST , Service support ,
--- NOTE | 2019-06-27 08:19 | ED.VIS.GEN ---
History of Present Illness Chief Complaint: Syncope Narrative: Chief complaints of syncope. However patient's primary concern is his headache and chest pain. He developed a gradual onset of headache about 2 days ago with some photophobia. This was bilateral headache sharp and stabbing. It has gradually gotten worse. Today he developed chest pain which is sharp and stabbing with some radiation to his back. He has no abdominal pain he has some nausea without vomiting. He tells me he does have some difficulty concentrating on objects but overall his vision is unchanged. No recent fever or chills or myalgias, he does have some paresthesias in his fingers and toes. He has no recent diarrhea or nausea or vomiting. No recent travel history. No recent trauma. Past Medical History - Allergies and Home Meds Allergies/Adverse Reactions: Allergies No Known Allergies Allergy (Verified 06/27/19 07:58) Primary Care Physician: Care Physician,No Primary [Primary Care Provider] - Past Medical History: None Surgical History: no surgical history Smoking Status: Current every day smoker Review of Systems All systems negative except as indicated General: Denies: Fever Eyes: Reports: - - Difficulty concentrating, ENT: Denies: Rhinorrhea, Sore throat Cardiovascular: Reports: Chest pain, Palpitations Respiratory: Denies: Dyspnea, Cough Gastrointestinal: Denies: Abdominal pain, Nausea Genitourinary: Denies: Dysuria Musculoskeletal: Reports: Back pain. Denies: Myalgias, Neck pain Skin: Denies: Rash Neurological: Reports: Headache. Denies: Weakness, Parasthesia Endocrine: Denies: Polyuria Hematologic: Denies: Easy bruising Allergy: Denies: Uticaria Physical Exam Vital Signs/Narrative: Vital Signs Temp Pulse Resp BP Pulse Ox 06/27/19 07:58 97.9 F 81 16 136/90 H 96 06/27/19 07:54 97.9 F 90 20 H 136/90 H 95 Inital Vital Signs reviewed: No General: Well nourished, Well developed, - - He appears in some distress Head: Normocephalic, Atraumatic Eyes: Perrl, EOMI ENT: Moist mucous membranes Cardiovascular: Regular rate, Regular rhythm Respiratory: No distress, CTA bilaterally Abdomen: Soft, Nontender Back: Nontender, Normal Inspection Extremities: Nontender, No edema Skin: Normal color, No rash Neurological: Alert, Oriented x3, Cranial nerves II-XII grossly intact, Normal Strength, Normal Sensation. Negative for: Confused, Weakness Psychological: - - Anxious Diagnostic/Tx/Re-eval - Rhythm Strip Rhythm Strip: Sinus Rhythm Rate: 78 Ectopy: None - EKG Initial EKG Interpretation: Sinus Rhythm, No Acute Injury Pattern, - - Normal sinus rhythm with a rate of 78. Normal NV interval. Normal QTc interval. No ischemic changes Interpreted by emergency doctor - Medical Decision Making Patient has a normal emergency department. He appears well. There is no evidence of intracranial aneurysm or PE. He significantly improved with analgesics. I will discharge him in stable condition ED Disposition - Plan for ED Patient: Disposition: Home or Assisted Living Diagnosis: Headache Instructions: SYNCOPE, Unk Cause Prescriptions: Metoclopramide [Reglan] 10 mg PO 4X/DAY #20 tab Prescription Printed Referrals: Care Physician,No Primary [Primary Care Provider] - 3-5 Days
[2019-06-27 08:31] LABS: Absolute Lymphocyte Count 4.01 X10^3/uL (0.83-4.51); Absolute Neutrophil Count 5.5 X10^3/uL (2.0-7.7); Basophil# 0.04 X10^3/uL; Basophil% 0.4 % (0-1); Eosinophil# 0.58 X10^3/uL; Eosinophils% 5.2 % (0-5); Hematocrit 47.9 % (40-54); Hemoglobin 16.5 g/dL (13.0-16.5); Lymphocyte # 4.01 X10^3/ul (4.0); Mean Corp Hgb Conc 34.4 g/dL (32-36); Mean Corpuscular Hgb 29.6 pg (27.0-32.0); Mean Corpuscular Volume 85.8 fL (80-94); Mean Platelet Vol. 9.8 fl (6.2-12.0); Monocyte# 1.01 X10^3/uL; Monocyte% 9.1 % (0-10); NRBC Flagged by Analyzer 0 % (0-5); Neutrophil # 5.49 X10^3/uL (2.7-7.7); Neutrophil % 49.1 % (47-70); Platelet Count 252 K/mm3 (150-450); RBC Distribution Width CV 12.4 % (11.6-14.6); RBC Distribution Width SD 38.5 fl (35.1-43.9); Red Blood Count 5.58 M/mm3 (4.6-6.2); White Blood Count 11.2 K/mm3 (4.4-11.0)
[2019-06-27] MEDS: DiphenhydrAMINE 50 MG/ML Syringe 25 MG IV (08:34)
[2019-06-27] MEDS: 0.9% Normal Saline 1,000 ML 1000 ML IV (08:34)
[2019-06-27] MEDS: Metoclopramide 10 MG/2 ML Vial IV (08:35)
[2019-06-27] MEDS: Ketorolac 15 MG/ML Vial IV (08:37)
[2019-06-27] MEDS: Morphine 4 MG/ML Syringe IV (08:38)
[2019-06-27 08:47] LABS: AST(SGOT) 12 U/L (15-37); Alanine Aminotransfer ALT/SGPT 42 U/L (16-61); Albumin, Serum 4.1 g/dL (3.2-5.0); Alkaline Phosphatase 99 U/L (45-117); Anion Gap 9 (5-15); BUN 12 mg/dL (7-18); BUN/Creat Ratio 13.4 RATIO (10-20); Calcium,Total 9.3 mg/dL (8.5-10.1); Chloride 105 mmol/L (98-107); EST Glomerular Filtration Rate 109 mL/min (>60); Est Glom Filt Rate - Afr Amer 132 mL/min (>60); Estimated Creatinine Clearance 129.55 ml/min; Glucose 103 mg/dL (74-106); Lipase 136 U/L (73-393); Potassium 4.1 mmol/L (3.5-5.1); Protein, Total 8.1 g/dL (6.4-8.2); Sodium Level 138 mmol/L (136-145)
[2019-06-27 09:36] VITALS: BP 145/81; PULSE 81; RESP 16; O2SAT 98
--- NOTE | 2019-06-27 10:06 | CT_ITS ---
STUDY: CTA OF THE BRAIN REASON FOR EXAM: Male, 23 years old. HEADACHE, SYNCOPE x 2 THIS AM. PHOTOPHOBIA. RADIATION DOSAGE (If Supplied By Facility): CTDIvol = ( 15.56 ) mGy, DLP = ( 429.48 ) mGycm TECHNIQUE: CT angiography was performed with a multi-detector CT scanner. Data acquisition was obtained from the skull base through the vertex following intravenous administration of IV 70mL Isovue-370. MIP images were reconstructed from the axial data set. Post-processing of the angiographic images was performed, with multiplanar reformation and 3D reconstruction. Individualized dose optimization techniques were used for this CT. COMPARISON: None. FINDINGS: Normal bilateral petrous carotid arteries. Normal right cavernous carotid artery with a normal supraclinoid bifurcation. Normal left cavernous carotid artery with a normal supraclinoid bifurcation. Normal right A1 segments of the anterior cerebral artery. Normal left A1 segments of the anterior cerebral artery. Normal intact anterior communicating artery (ACOM). Normal bilateral A2 segments of the anterior cerebral arteries. Normal right M1 and M2 segments of the middle cerebral arteries, with a normal M1 bifurcation. Normal left M1 and M2 segments of the middle cerebral arteries, with a normal M1 bifurcation. Normal right posterior communicating artery (PCOM). Normal left posterior communicating artery (PCOM). Normal bilateral vertebral arteries. Normal basilar artery with a normal basilar bifurcation. The visualized bilateral superior cerebellar (SCA) arteries are normal. Normal bilateral P1, P2 and visualized P3 segments of the posterior cerebral arteries. There is no demonstrated aneurysm of the sycuan of Ricardo. There is no demonstrated abnormality of the visualized brain. CT/CTA Head W/WO Contrast IMPRESSION: Normal sycuan of Ricardo without a demonstrated aneurysm or hemodynamically significant stenosis. Electronically Signed: Mariano Pryor, at 10:37 EST , Service support ,
[2019-06-27 10:09] VITALS: BP 145/81; PULSE 75; RESP 16; O2SAT 98
== END 2019-06-27 11:23 | disposition home or self-care (01) ==
PROVIDERS: Emergency Provider Emergency Medicine
DX: R51 Headache (principal); R07.9 Chest pain, unspecified; R55 Syncope and collapse; F17.200 Nicotine dependence, unspecified, uncomplicated
CPT/HCPCS: 70450; 70496; 71275; 80053; 83690; 84484; 85025; 93005; 96361; 96374; 96375; 99284; J7030; Q9967; A4216

== ENCOUNTER 2019-12-23 11:48 | Emergency (ER) | payer MEDICAID, SELFPAY ==
[2019-12-23 11:49] VITALS: BP 126/77; PULSE 103; PULSE 110; RESP 18; RESP 20; TEMP 36.9; O2SAT 96; BMI 31.8
--- NOTE | 2019-12-23 12:11 | ED.VISSUMM ---
- ER Visit Summary Date of Service: 12/23/19 Chief Complaint: Cough and congestion History of Present Illness: The patient is a 24 M who presents with cough and congestion that began yesterday. Patient states his head feels congested. Patient admits to sore throat and rhinorrhea. Patient admits to general aching. Patient denies any sick contacts. Patient does state he lost his taste and smell. Patient states her temperature at home was 100.2. Patient admits to some shortness of breath. Patient admits to some nausea and vomiting. Patient states his emesis is stomach contents. Patient denies any hematemesis or coffee-ground emesis. Physical Examination: Vital signs are stable except for slight tachycardia of 103. Patient is afebrile here. Patient is in no acute distress. Oral mucosa is pink and moist. Oropharynx is clear. Airway is patent. Tympanic membranes are clear bilaterally. Nasal mucosa is congested. Neck is supple. Trachea is midline. There is no JVD. Heart was regular rate and rhythm. Lungs are clear and equal bilaterally. Abdomen is soft and nontender. Cranial nerves II through XII are intact. There are no focal motor or sensory deficits noted. Extremities are intact. There is no calf tenderness or edema. Test Results: Portable chest x-ray was obtained. There is no acute cardiopulmonary process. COVID swab was obtained and is a send out. Patient was advised that this will take 3 to 5 days for the results. Emergency Department Course and Treatment: Patient was given albuterol inhaler here. Patient was instructed to drink plenty of fluids. Patient was instructed to follow-up with his primary care physician and 3-5 days. Patient understood and was agreeable with the plan. All questions were answered. Disposition: Discharge home Impression: Viral upper respiratory infection This note was generated with [employer] dictation software. It may contain incorrect words, spelling, and punctuation that were not noted in review of the chart prior to signing ED Disposition - Plan for ED Patient: Disposition: Home or Assisted Living Diagnosis: Viral upper respiratory infection Instructions: ED URI Viral Referrals: Kendall Chau MD [NON-STAFF] - 5-7 Days
[2019-12-23 12:30] VITALS: PULSE 99; RESP 16; O2SAT 96
--- NOTE | 2019-12-23 13:00 | RAD_ITS ---
STUDY: X-RAY CHEST REASON FOR EXAM: Male, 24 years old. Fever, head congestion, loss of taste and smell, body aches, SOB TECHNIQUE: Frontal view COMPARISON: 05-17-18 FINDINGS: The lungs are clear and expanded. There is no demonstrated pleural abnormality. Normal size heart. Normal mediastinum and jesika. Normal visualized pulmonary arteries. Normal visualized aortic arch and descending thoracic aorta. Normal visualized thoracic spine. Normal visualized ribs, clavicles, and shoulders. There is no demonstrated abnormality of the visualized soft tissue structures of the upper abdomen. RAD/Chest 1 View (Portable) IMPRESSION: Normal x-ray examination of the chest. Electronically Signed: Timothy Blankenship DO at 13:49 EDT Tel [phone], Service support ,
[2019-12-23 14:40] VITALS: BP 130/86; PULSE 86; RESP 16; O2SAT 96
--- NOTE | 2019-12-23 14:41 | ED.RN ---
DISCHARGE INSTRUCTIONS GIVEN TO AND REVIEWED WITH PATIENT, PATIENT DENIES QUESTIONS OR CONCERNS AND VOICES UNDERSTANDING OF DISCHARGE INSTRUCTIONS. PT AMBULATES OUT OF ROOM WITHOUT DIFFICULTY.
== END 2019-12-23 14:42 | disposition home or self-care (01) ==
PROVIDERS: Emergency Provider Emergency Medicine
DX: J06.9 Acute upper respiratory infection, unspecified (principal); F17.200 Nicotine dependence, unspecified, uncomplicated
CPT/HCPCS: 71045; 87635; 94640; 94799; 99282; U0003

== ENCOUNTER → 2019-12-29 12:37 | Outpatient (CLI) | payer MEDICAID, SELFPAY ==
[2019-12-23 11:49] VITALS: BMI 31.8
[2019-12-29 13:40] LABS: Probe Check PASS; Specimen Processing Control PASS
== END ==
PROVIDERS: Visit Provider Emergency Medicine
DX: J06.9 Acute upper respiratory infection, unspecified (principal)
CPT/HCPCS: 87635; U0003

== ENCOUNTER 2020-07-07 12:16 | Emergency (ER) | payer MEDICAID, SELFPAY ==
[2020-07-07 12:16] VITALS: BP 142/88; PULSE 87; RESP 16; TEMP 36.1; O2SAT 98; BMI 34.4
[2020-07-07 12:19] VITALS: BP 142/88; PULSE 87; RESP 16; TEMP 36.1; O2SAT 98
--- NOTE | 2020-07-07 12:45 | ED.DCSUM_ITS ---
- ER Visit Summary Date of Service: 07/07/20 Chief Complaint: [Redness and swelling to anterior chest] History of Present Illness: The patient is a 24 M [presents to the emergency department with a lump on his anterior chest that he has had for many years but over the last 2 days has become more swollen and painful and red. Patient denies any fevers. Patient states that he tried to pop it last night by sticking a needle in it. Patient states he was drunk at the time. Patient states that he got small amount of purulent very foul-smelling debris from it.] Physical Examination: [HEENT-PERRLA, EOMI. Cranial nerves II through XII grossly intact. TMs clear. Mucous membranes moist. No adenopathy. Cardiovascular-regular rate and rhythm without murmur or ectopy Lungs-clear to auscultation, chest wall stable without crepitus or subcu emphysema. Anterior aspect of upper sternum there is a soft tissue swelling measuring approximately 3.5 cm in diameter that is fluctuant and erythematous. Area slightly tender to palpation. Small amount of purulent debris oozing from the wound. Abdomen-normoactive bowel sounds, soft, nontender, no rebound or rigidity, no peritoneal signs. Extremities-intact ?4, normal range of motion, normal pulses, atraumatic] Test Results: [None indicated] Emergency Department Course and Treatment: [Patient was offered incision and drainage of suspected infected sebaceous cyst which she agreed. Area sterilely draped and prepped. Skin cleansed with Betadine. Using 1% lidocaine total of 8 cc used anesthetize the sebaceous cyst in a circumferential fashion. Using 11 blade a 2 cm horizontal laceration was made and immediately large amount of purulent thick cottage cheeselike foul-smelling debris was obtained. I continue to milk and expressed the wound and continue to obtain large amounts of purulent debris. The wound edges were gaping slightly therefore decision was made to place 1 single erupted suture loosely with 5-0 nylon to approximate the wound edges. Clean dressing was applied. Patient received 1 dose of Keflex in the emergency department 500 mg p.o.] Treatment Plan: [Patient will be given Keflex for 7 days. Patient will be ref erred to Dr. Aleks Rosenberg for follow-up as I explained to them that this could continue to recur if the rind of the sebaceous cyst was not completely removed surgically. Patient advised to return if increasing pain, redness, swelling, purulent drainage, fevers, or condition worsen anyway.] Disposition: [Discharged home in stable condition] Impression: [Incision and drainage of infected sebaceous cyst to anterior chest wall] This note was generated with [employer] dictation software. It may contain incorrect words, spelling, and punctuation that were not noted in review of the chart prior to signing ED Disposition - Plan for ED Patient: Referrals: Care Physician,No Primary [Primary Care Provider] -
--- NOTE | 2020-07-07 12:49 | ED.DEP ---
ED Disposition - Plan for ED Patient: Instructions: ED Abscess Incision And Drainage Prescriptions: Cephalexin [Keflex] 500 mg PO Q6 #28 cap Prescription Printed Referrals: Care Physician,No Primary [Primary Care Provider] - Aleks Rosenberg MD [STAFF PHYSICIAN] - 7 Days for suture removal
--- NOTE | 2020-07-07 12:57 | ED.DEP ---
ED Disposition - Plan for ED Patient: Instructions: ED Abscess Incision And Drainage Prescriptions: Cephalexin [Keflex] 500 mg PO Q6 #28 cap Prescription Printed Cephalexin [Keflex] 500 mg PO Q6 #28 cap Transmission Status: Pending to [id number] Referrals: Aleks Rosenberg MD [STAFF PHYSICIAN] - 7 Days for suture removal Care Physician,No Primary [Primary Care Provider] -
[2020-07-07] MEDS: Cephalexin 250 MG Capsule 500 MG PO (13:09)
[2020-07-07] MEDS: Lidocaine 1% (20 ml mdv) 20 ML Vial 10 ML INFILT (13:09)
--- NOTE | 2020-07-07 13:14 | ED.RN ---
DISCHARGE INSTRUCTIONS GIVEN TO AND REVIEWED WITH PATIENT, PATIENT DENIES QUESTIONS OR CONCERNS AND VOICES UNDERSTANDING OF DISCHARGE INSTRUCTIONS. PT AMBULATES OUT OF ROOM WITHOUT DIFFICULTY.
== END 2020-07-07 13:14 | disposition home or self-care (01) ==
LOC: ED 12:52
PROVIDERS: Emergency Provider Emergency Medicine
DX: L72.3 Sebaceous cyst (principal); Z72.0 Tobacco use
CPT/HCPCS: 10061; 10060; 99283

== ENCOUNTER 2020-11-14 16:47 | Emergency (ER) | payer MEDICAID, SELFPAY ==
[2020-11-14] VITALS (7 sets, daily range): BP systolic 135–148; BP diastolic 80; PULSE 94–108; RESP 16–18; TEMP 35.9–36.6; O2SAT 96–100; BMI 30.2
--- NOTE | 2020-11-14 17:04 | EDS_ITS ---
HPI History of Present Illness Chief Complaint: ETOH Intox Informant: patient Onset/Context/Timing Onset: Month(s) Context: Gradual Onset Current Severity: Mild Maximum Severity: Mild Associated Symptoms Associated Symptoms: Negative for vomiting*, diarrhea* and fever* Narrative Narrative: 25-year-old male denies any past medical or surgical history. Currently on no medications. States he has a history of alcohol abuse. Typically drinks 15-18 beers a day. And is looking to get detox. Denies any recent detox. Denies any other substance abuse. States his last drink was an hour ago and it was 1 shot has always had a drink today. He denies any vomiting or melena. Prior similar symptoms: Yes Recent Illness/Hospitalization: No [facility] Medical History (Updated 11/14/20 @ 17:[address] Gumaro Collier MD) Alcohol abuse Depression no medical history Home Medications NK 11/14/20 [History Last Taken Unknown] Allergy/AdvReac Type Severity Reaction Status Date / Time No Known Allergies Allergy Verified 07/07/20 12:19 no surgical history Social History Smoking Status: Current every day smoker tobacco type: cigarettes ROS ROS ED ROS Narrative Denies any recent illness. Review of Systems ROS Unobtainable: Denies due to encephalopathy Constitutional Constitutional ED: Denies chills or fever(s) Eyes Eyes: Denies change in vision ENT ENT ED: Denies ear pain or sore throat Cardiovascular Cardiovascular: Denies chest pain Respiratory/Chest Respiratory/Chest: Denies cough or dyspnea Gastrointestinal Gastrointestinal: Denies abdominal pain, diarrhea, melena, nausea or vomiting Genitourinary Genitourinary ED: Denies dysuria Musculoskeletal Musculoskeletal: Denies myalgias Integumentary Denies rash Neurologic Neurologic: Denies headache(s) Psychiatric Psychiatric: Denies depression Endocrine Endocrinology: Denies polyuria Hematologic/Lymphatic Hematologic/Lymphatic: Denies easy bruising Allergic/Immunologic Allergic/Immunologic ED: Denies urticaria EXAM Physical Exam Narrative Exam Narrative: Young male no acute distress. Vital signs stable afebrile. Currently awake and alert cooperative. Not combative. Exam unremarkable. Const Vital Signs: 11/14/20 16:50 11/14/20 16:55 11/14/20 17:47 Temperature 96.7 F L 96.7 F L 97.9 F Temperature Source Temporal Temporal Temporal Pulse Rate 108 H 108 H 100 Respiratory Rate 18 18 18 Blood Pressure 135/80 H 135/80 H Blood Pressure Mean 98 98 Pulse Ox 96 96 100 Oxygen Delivery Method Room Air Room Air Room Air 11/14/20 18:48 Temperature Temperature Source Pulse Rate Respiratory Rate 16 Blood Pressure Blood Pressure Mean Pulse Ox Oxygen Delivery Method Positive well nourished and well developed General Appearance ED: well developed HEENT Reports moist mucous membranes atraumatic; Negative for trauma or tenderness Eyes PERRL and EOMs intact bilaterally Neck supple and no JVD Lymph Lymphatic: no lymphadenopathy noted Chest Wall inspection of chest normal and palpation of chest normal Resp normal respiratory effort and clear to auscultation bilaterally Cardio regular rate, regular rhythm and no murmurs GI soft to palpation, non-tender, non-distended and no masses Inspection: Negative for abdominal distention Palpation: Negative for tender, guarding or rigid Back/Spine no CVA tenderness General Back: Negative for CVA tenderness Cervical Spine: Negative for cervical spine tenderness Extremity General Extremety ED: Negative for edema or tenderness General Extremity: Negative for edema Neuro oriented x3 Sensorium / Orientation: alert, oriented to person, oriented to place and oriented to time Motor Exam: strength 5/5 throughout Psych mental status grossly normal Attitude: No belligerent, No agitated, No aggressive and No hostile Mood & Affect: Negative for anxious or tearful Skin Lesions: no lesions Rashes: no rashes MDM MDM MDM Narrative Medical decision making narrative: Young male requesting detox for alcoholism. Currently he is cooperative and calm and stable. Exam benign. I have the hospitalist on page for admission. If they want screening labs I will have them obtained. Patient decided not to do inpatient detox could they would not let him use his phone. Then it became more complicated when crisis spoke to our family welfare social work professor and said the patient made suicidal threats on the phone he was talking to them. There is a family history of suicide and he has had a prior attempt. He also does admit he gets depressed when he drinks. He denies all this initially and minimalized it to both myself and the family welfare social work professor when confronted. He will now be placed in a ED mental health work-up. Repeat exam patient initially was refusing testing. He then became cooperative realizing he really did not have much of a choice. He is currently resting com fortably at 7:24 PM. Lab Data Attestation: I reviewed the patient's lab results. Lab results narrative: CBC unremarkable white count of 12. He DM 17. Electrolytes unremarkable gap of 7. Normal creatinine and gap. Alcohol negative. Tox screen negative except for cannabis. Labs: Laboratory Results - last 24 hr 11/14/20 11/14/20 11/14/20 18:30 18:30 18:30 WBC 12.1 H RBC 5.68 Hgb 17.2 H Hct 49.6 MCV 87.3 MCH 30.3 MCHC 34.7 RDW Std Deviation 40.6 RDW Coeff of Devon 12.8 Plt Count 227 MPV 9.6 Immature Gran % (Auto) 0.400 Neut % (Auto) 64.9 Lymph % (Auto) 23.6 [place] % (Auto) 9.5 Eos % (Auto) 1.2 Baso % (Auto) 0.4 Absolute Neuts (auto) 7.9 H Absolute Lymphs (auto) 2.87 Nucleated RBC % 0 Sodium 140 Potassium 3.7 Chloride 109 H Carbon Dioxide 24.0 Anion Gap 7 BUN 8 Creatinine 0.85 Estim Creat Clear Calc 134.79 Est GFR (MDRD) Af Amer 139 Est GFR (MDRD) Non-Af 115 BUN/Creatinine Ratio 9.4 L Glucose 102 Calcium 9.8 Urine Opiates Screen Urine Methadone Screen Ur Barbiturates Screen Ur Phencyclidine Scrn Ur Amphetamines Screen U Methamphetamin-MDMA U Benzodiazepines Scrn Urine Cocaine Screen U Cannabinoids Screen Ur Drug Screen Comment Ethyl Alcohol < 3.0 11/14/20 19:01 WBC RBC Hgb Hct MCV MCH MCHC RDW Std Deviation RDW Coeff of Devon Plt Count MPV Immature Gran % (Auto) Neut % (Auto) Lymph % (Auto) Pickens % (Auto) Eos % (Auto) Baso % (Auto) Absolute Neuts (auto) Absolute Lymphs (auto) Nucleated RBC % Sodium Potassium Chloride Carbon Dioxide Anion Gap BUN Creatinine Estim Creat Clear Calc Est GFR (MDRD) Af Amer Est GFR (MDRD) Non-Af BUN/Creatinine Ratio Glucose Calcium Urine Opiates Screen NEGATIVE Urine Methadone Screen NEGATIVE Ur Barbiturates Screen NEGATIVE Ur Phencyclidine Scrn NEGATIVE Ur Amphetamines Screen NEGATIVE U Methamphetamin-MDMA NEGATIVE U Benzodiazepines Scrn NEGATIVE Urine Cocaine Screen NEGATIVE U Cannabinoids Screen POSITIVE H Ur Drug Screen Comment Ethyl Alcohol Discharge Plan Dx/Rx/DC Orders Clinical Impression: Alcohol abuse, Desire for detoxification, Depression, Suicidal ideation Disposition Disposition: Acute Care [facility]
[2020-11-14 18:46] LABS: Absolute Lymphocyte Count 2.87 X10^3/uL (0.83-4.51); Absolute Neutrophil Count 7.9 X10^3/uL (2.0-7.7); Basophil# 0.05 X10^3/uL; Basophil% 0.4 % (0-1); Eosinophil# 0.14 X10^3/uL; Eosinophils% 1.2 % (0-5); Hematocrit 49.6 % (40-54); Hemoglobin 17.2 g/dL (13.0-16.5); Lymphocyte # 2.87 X10^3/ul (0.83-4.51); Lymphocyte % 23.6 % (19-41); Mean Corp Hgb Conc 34.7 g/dL (32-36); Mean Corpuscular Hgb 30.3 pg (27.0-32.0); Mean Corpuscular Volume 87.3 fL (80-94); Mean Platelet Vol. 9.6 fl (6.2-12.0); Monocyte# 1.15 X10^3/uL; Monocyte% 9.5 % (0-10); NRBC Flagged by Analyzer 0 % (0-5); Neutrophil # 7.88 X10^3/uL (2.7-7.7); Neutrophil % 64.9 % (47-70); Platelet Count 227 K/mm3 (150-450); RBC Distribution Width CV 12.8 % (11.6-14.6); RBC Distribution Width SD 40.6 fl (35.1-43.9); Red Blood Count 5.68 M/mm3 (4.6-6.2); White Blood Count 12.1 K/mm3 (4.4-11.0)
--- NOTE | 2020-11-14 18:47 | CM.ED ---
SOCIAL WORK ASSESSMENT Referral Source: ED Staff Reason for Consult: Mental Health Chief Compliant: Patient reports that he is at the hospital because of ?my drinking?. He reports he drinks between 15-18 beers a day. Patient reports that his alcohol usage has increased the past couple of years. Patient said that he also drinks ?a few shots here and there?. JASPREET spoke to Allie at [facility] ([facility]). She reported that patient called into [facility] and told irrigation system installer ?I am suicidal, and I plan to end my life tonight?. Allie reported that patient was tearful and hopeless. Allie said that the primary issue is he can not see his children and does not have his own place so he is living with someone with a child endangerment charge and the children?s mother will not allow visits. Allie said that patient was ?crying so hard?. She reported that patient said that he was drinking all day and had drank 375ml of whiskey. Allie said that patient reported he left his workplace and was at a pond but refused to tell where he was at the time. Allie reports that staff at [facility] contacted the police and they were able to locate the patient using outdoor noises (i.e., planes) that Allie heard in her office and on the phone to patient. Patient told Allie he was planning to buy pills to kill self. He reported he was discouraged and felt ?worthless and hopeless? and wanted to . Patient reports he had a failed suicide attempt where he hung himself. Allie reports that patient stated he has been depressed for 3 years and is chronically suicidal. Patient told Allie ?If I get help with my drinking, I won?t be suicidal?. Allie also reported that the person who answered the phone noted long pauses when patient would not respond, and they were concerned that patient may have harmed himself. Allie said at the end of the conversation patient said that he is suicidal when drinking. Marital/Social History: Patient said that he was in a relationship for 9 years and the relationship ended 1 month ago. He reported she ?wasn?t happy about my drinking?. Patient reports he has 2 children, boy age 7 and girl age 2. Patient reports he has not seen them for 1 ? weeks. Living Situation: Patient lives in a house with a friend in [facility] Support/Resources: Patient reports he has no support. 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 He has been on his job for 1 year. Patient reports the last grade he attended in school was the 9th grade. He reports no learning issues or delays. Mental Health Treatment/History: Patient denied any counseling, therapist, or psych hospitalizations. Patient reports a previous psych hospitalization 2-3 years ago at [facility] that was ?not helpful?. Patient said that he was hospitalized as he lost his brother to an OD and tried to kill himself by hanging himself. He reports he was at [facility] for 3 days. Triggers/Stressors: Reports triggers are ?not seeing my kids? and ?it triggers me to drink?. Coping Skills: Patient reports his coping skills are drinking. Abuse Issues: Patient denied any abuse issues. Substance Abuse History. Patient reports that his drug of choice is alcohol. Patient said that he smokes weed ?here and there because it helps with my depression and not wanting to drink.? Patient reports smoking one joint a day of marijuana. Risk to Self/Others: Suicidal- Patient denied any plans to harm himself or thoughts of Suicide. Homicidal: Denied Violence- Patient reports no violence toward self or others. Mental Status Exam: Orientation-x4 Memory: Intact Appearance/General Behavior: Clean, wearing street clothes, appropriate hygiene. Mood/Affect: Patient was initially calm; however, he became agitated when noting he was pink slip and stated that there was nothing more to say. Communication Pattern: Responds to questions Thought Process: Logical and linear.Patient did not appear to be under the influence when this advertising writer met with him. General Intellectual Functioning: Average Judgement: Poor Insight: Poor Assessment: Patient initially presented to ED stating he wanted help with alcohol treatment. However, this advertising writer reviewed pink slip that was completed by Luz Maria RODRIGUEZ that said the police? were dispatched to [facility] to find Ollie who was on the phone to the [facility] and was expressing suicidal thoughts. Allie at [facility] informed me that said that he wanted to , and he planned to kill himself tonight with pills or drink himself to . When I spoke to Ollie, he expressed that he was suicidal when he drinks, and he was worried about doing something when he was. He told me he had some whiskey earlier. Per Allie, Skimmer at [facility]. Patient called crisis hotline stating he was suicidal with plan and intent to end life. Initially patient would not give name, location and was reserved on providing information. Patient was tearful stating he does not want to live and plans on ending his life tonight all due to not being able to visit with his children. When asked where patient was at patient said he was at a place called ?[place]? where there is a walsh that he walked to from [email or web address]. Patient reports having a plan to end life tonight by consuming alcohol and OD on pills. Patient has one other attempt 3 years ago via hanging. Patient said it was a miserable failed attempt and he will never try that way again. Patient reports depression and SI ideations being chronic for the past 3 years. Patient made statements such as ?I am a piece of shit? and ?I do not want to live?. Patient said, ?I just want to ? and said, ?I do not want to be here anymore?. Patient reports feelings of hopelessness, worthless, guilt and said the has no reason to live and would not provide a reason to live. Patient refused to allow Allie to contact family or friends. Per Allie?s documentation patient?s speech was difficult to understand as patient was either crying or intoxicated. Documentation by Allie noted that patient seemed to minimize the SI statements he made. SW talked to patient about his statements, and he said that they were ?misconstrued?. Patient said that he would go ?into the [facility] program? at [facility] and patient was advised that was not an option at this point. Previously, patient had declined a referral to [facility]AMP program as he did not wish his phone to be taken away. Patient reports he will refuse blood work while at the hospital. Plan: Inpatient psych hospitalization Teresa [facility]ACKWO[facility]
[2020-11-14 18:59] LABS: Alcohol, Blood (Medical)-Serum < 3.0 mg/dL
[2020-11-14 19:02] LABS: Anion Gap 7 (5-15); BUN 8 mg/dL (7-18); BUN/Creat Ratio 9.4 RATIO (10-20); Calcium,Total 9.8 mg/dL (8.5-10.1); Chloride 109 mmol/L (98-107); Creatinine, Serum 0.85 mg/dL (0.70-1.30); EST Glomerular Filtration Rate 115 mL/min (>60); Est Glom Filt Rate - Afr Amer 139 mL/min (>60); Estimated Creatinine Clearance 134.79 ml/min; Glucose 102 mg/dL (74-106); Potassium 3.7 mmol/L (3.5-5.1); Sodium Level 140 mmol/L (136-145)
[2020-11-14 19:18] LABS: Amphetamine Urine VISTA NEGATIVE (<1000 ng/mL); Barbiturate Urine VISTA NEGATIVE (< 200 ng/mL); Benzodiazepine Urine VISTA NEGATIVE (< 200 ng/mL); Cocaine Urine VISTA NEGATIVE (< 300 ng/mL); Ecstacy Urine VISTA NEGATIVE (< 500 ng/mL); Methadone Urine VISTA NEGATIVE (< 300 ng/mL); PCP Urine VISTA NEGATIVE (< 25 ng/mL); THC Urine VISTA POSITIVE (< 50 ng/mL); Vista UDS pH Range 5
--- NOTE | 2020-11-14 19:36 | CM.ED ---
Addendum entered by Teresa Mccann 11/14/20 19:44: JASPREET advised patient that he was pinked slip by [employer]. He insistent that he came to ED for help and was only pink slip after I came here. Again, patient's minimization of his presentation present as a concern and thus this lyric writer feels that patient needs inpatient treatment. Original Note: JASPREET Note SW went into patient's room and explained concerns regarding patient's safety. Patient continually stated things were misconstrued. He stated I will go to the inpatient program here if I don't have to go to psych. SW noted that was not an option now. JASPREET called Key at [facility]. She said that patient's charting completed by Allie could be sent in referral packet. Plan: Inpatient [facility]
--- NOTE | 2020-11-14 20:02 | CM.ED ---
Addendum entered by Teresa Mccann 11/14/20 20:47: SW noted that patient had reported that he attempted suicide 3 years ago after the of his brother. However, when reviewing chart it stated that patient had attempted suicide in 2019 with a belt related to a friends a few months prior. SW had also spoken to patient about his depression and reports of depression for 3 years and he said well you would be too if your brother had . Teresa Mccann MSW LISWS Original Note: JASPREET Note SW called [facility] ([facility] . They have male beds. JASPREET faxed referral to [facility].
--- NOTE | 2020-11-14 20:21 | EKG12_ITS ---
Test Reason : [facility] Blood Pressure : / mmHG Vent. Rate : 074 BPM Atrial Rate : 074 BPM P-R Int : 156 ms QRS Dur : 104 ms QT Int : 370 ms P-R-T Axes : 062 054 050 degrees QTc Int : 410 ms Sinus rhythm with marked sinus arrhythmia Otherwise normal ECG Confirmed by AFIA WOOD, SHERRY ([id number]), general expeditor CARMEN PARMAR ([id number]) on 11/18/2020 10:52:21 A M Referred By: PRASAD Confirmed By:OSKAR OREILLY MD
--- NOTE | 2020-11-14 22:19 | CM.ED ---
JASPREET Note: SW called [facility]. Spoke to Dory in intake. They had agreed to accept patient. Accepting MD is Loree Blair and RN to RN is [phone]. RN and stone carriage operator updated. SW met with patient and updated him that he was accepted at [facility] ([facility]).He asked if that is where he went before and this magazine writer said that patient had reported he was at [facility] in the past. Patient asked if he could go to facility in [place]. SW advised that patient would need to be referred tonight and that The Crisis Team at [facility] would make the referral. Patient asked when transport was comin g and psychiatric social worker advised that this magazine writer had updated him first prior to scheduling transport. Patient said well, I got to call Odilia then. Patient was dismissive of this magazine writer. SW spoke to pocket secretary assembler and requested transport be arranged. Plan: [facility] for patient Teresa Mccann PATSY BLACKWOOD
--- NOTE | 2020-11-14 23:25 | ED.RN ---
patients gf at the bedside upset with patients placement. explain to S/O it is up to the social work department for placement. At this time social work is not in house. Spoke with crisis. Who advised once patient is accepted it is hard to reverse decision. S/O made aware and still upset. HRO at the bedside at this time
== END 2020-11-14 23:27 ==
PROVIDERS: Emergency Provider Emergency Medicine
DX: F10.129 Alcohol abuse with intoxication, unspecified (principal); Y90.9 Presence of alcohol in blood, level not specified; F32.9 Major depressive disorder, single episode, unspecified; R45.851 Suicidal ideations; F17.210 Nicotine dependence, cigarettes, uncomplicated
CPT/HCPCS: 80048; 80307; 82077; 85025; 87426; 93005; 99285